=== PATIENT | male | born 1955 | race Asian ===

== ENCOUNTER → 2018-02-20 | Day surgery (SDC) | payer BC ==
[~2018-02-20] MED LIST: FENTANYL CITRATE/PF 100MCG/2 ML INJ ONE; HYOSCYAMINE SULFATE 0.5 MG/ML INJ ONE; LIDOCAINE HCL 2% LOCAL INJ 5 ML SDV VIAL INJ ONE; LISINOPRIL10 MG PO; MIDAZOLAM HCL 2 MG/2 ML VIAL ONE; PROPOFOL IV EMULSION 10 MG/ML 50 ML VIAL ONE
--- NOTE | 2018-04-07 07:05 | Operative Report ---
DATE OF PROCEDURE: February 20, 2018 REFERRING PHYSICIAN: Dr. Kallie Becerril PROCEDURE PERFORMED: Colonoscopy and polypectomy. INDICATIONS FOR COLONOSCOPY: Colorectal cancer screening. MEDICATION: Patient was done under MAC. Please see anesthesiologist's note. PROCEDURE: With the patient in the left lateral decubitus position, the flexible fiberoptic Olympus colonoscope was inserted into the rectum with ease and advanced all the way to the cecum. Two minute polyps were hot biopsied from the cecum and 1 polypectomy site was hemoclipped. The scope was then withdrawn slowly. Mucosa overlying the ascending colon appeared to be within normal limits. Four polyps were snared from the transverse colon. Four polyps were snared from the descending colon. One polyp was snared and 1 polyp was hot biopsied from the sigmoid colon. Two polyps were snared from the rectum. There was some focal nodularity noted in the rectum that was biopsied. The scope was then retroflexed into the distal rectum and small internal hemorrhoids were noted, none of which was actively bleeding. The scope was then straightened out. It was subsequently withdrawn. Patient tolerated the procedure well. IMPRESSION 1. Cecal polyps times 2, hot biopsied, 1 polypectomy site hemoclipped. 2. Transverse colon polyps times 4, snared. 3. Descending colon polyps times 4, snared. 4. Sigmoid colon polyps times 2, one snared and one hot biopsied. 5. Rectal polyps times 2, snared. 6. Focal nodularity, proximal rectum, biopsied. 7. Internal hemorrhoids, none actively bleeding. PLAN: Follow up histology. Initiate high-fiber and low-fat diet. Initiate high-fiber supplement. Timing of followup colonoscopy pending pathology report. If the polyps were all benign, the patient might benefit from a followup colonoscopy in 1 year since 15 polyps were removed. Job#: [id number] RI cc:LUZ BECERRIL MD
== END | disposition home or self-care (01) ==
LOC: OR 13:53
PROVIDERS: ATTEND Internal Medicine Gastroenterology
DX: Z12.11 Encounter for screening for malignant neoplasm of colon (principal); D12.0 Benign neoplasm of cecum; D12.3 Benign neoplasm of transverse colon; D12.4 Benign neoplasm of descending colon; D12.5 Benign neoplasm of sigmoid colon; D12.8 Benign neoplasm of rectum; R19.4 Change in bowel habit; R19.5 Other fecal abnormalities; K62.89 Other specified diseases of anus and rectum; K64.8 Other hemorrhoids; I10 Essential (primary) hypertension; F41.9 Anxiety disorder, unspecified; Z01.810 Encounter for preprocedural cardiovascular examination; Z79.82 Long term (current) use of aspirin
CPT/HCPCS: 45380; 45384; 45385; 93005; J1980; J2001; J2250; 45378